=== PATIENT | female | born 1960 | race Caucasian/White ===

== ENCOUNTER → 2016-08-02 | Outpatient (CLI) | payer OTHER | LOC: LAB 13:26 | PROVIDERS: ATTEND Internal Medicine Endocrinology, Diabetes & Metabolism | DX: E89.0 Postprocedural hypothyroidism (principal) | CPT/HCPCS: 36415; 84443 ==

== ENCOUNTER → 2016-11-03 | Outpatient (CLI) | payer OTHER ==
[2016-11-03 08:27] LABS: CHOL/HDL RATIO 3.5 RATIO (0-4.0); LDL CHOLESTEROL,CALCULATED 117.8 mg/dL
[2016-11-03 08:44] LABS: FREE T4 (FREE THYROXINE) 0.94 ng/dL (0.93-1.71)
== END ==
LOC: LAB 07:38
PROVIDERS: ATTEND Internal Medicine Endocrinology, Diabetes & Metabolism
DX: E89.0 Postprocedural hypothyroidism (principal)
CPT/HCPCS: 36415; 80061; 84439; 84443